=== PATIENT | male | born 1990 | race Caucasian/White ===

== ENCOUNTER 2019-01-08 01:15 | Inpatient (IN) | payer OTHER ==
[~2019-01-08] VITALS: Ht 180.3 cm; Wt 82.3 kg
[~2019-01-08 01:15] MED LIST: ALBU3IS INH; ALBU90OI INH; ALBU90OI6 INH; ALBU90OI61 INH; ALPR1; ALPR1 PO; AZIT250 PO; BENZ100A PO; DELTASONE20 MG PO; DICY20 PO; DIPH50 PO; DULERA 100 MCG/13 GM INH; DULERA 200 MCG/13 GM INH; FLUSAL2505 INH; FLUSAL5005 IH; FLUT110OIA IH; Flomax0.4 MG PO; HYDACE5 PO; HYDMOR4 PO; IBUP800 PO; KETO10 PO; LORA10 PO; MAGSULP TOP; MELO7.5 PO; MONT10T PO; NAPR500 PO; ONDA4; OSEL75CA PO; PANT40 PO; PRED10 PO; PRED20 PO; PRED5 PO; PROC10 PO; PROM25 PO; Percocet 5-3251 EACH PO; Prednisone20 MG PO; Pulmicort1 MG/2 ML INH; RXALBOI INH; THEO400ER PO; Zithromax250 MG PO
[2019-01-08 03:15] LABS: BASOPHILS ABSOLUTE AUTO 0.14 K/mm3 (0.00-0.23); BASOPHILS PERCENT AUTO 1 % (0-2); EOSINOPHILS ABSOLUTE AUTO 1.64 K/mm3 (0.00-0.68); EOSINOPHILS PERCENT AUTO 11 % (0-6); Hematocrit 48.8 % (37.0-53.0); Hemoglobin 15.9 g/dL (13.5-17.5); IMMATURE GRAN ABSOLUTE AUTO 0.07 K/mm3 (0.00-0.10); IMMATURE GRAN PERCENT AUTO 1 % (0-1); LYMPHOCYTES ABSOLUTE AUTO 2.12 K/mm3 (0.84-5.20); LYMPHOCYTES PERCENT AUTO 15 % (21-46); MONOCYTES ABSOLUTE AUTO 0.93 K/mm3 (0.16-1.47); MONOCYTES PERCENT AUTO 6 % (4-13); Mean Corpuscular HGB 29.8 pg (26.0-34.0); Mean Corpuscular HGB Conc 32.6 g/dL (31.5-36.5); Mean Corpuscular Volume 92 fL (80-100); Mean Platelet Volume 12.2 fL (9.1-12.4); NEUTROPHILS ABSOLUTE AUTO 9.53 K/mm3 (1.96-9.15); NEUTROPHILS PERCENT AUTO 66 % (41-73); Platelet Count 361 K/mm3 (150-400); RDW Standard Deviation 43.6 fL (35.1-46.3); Red Blood Cell Count 5.33 M/mm3 (4.30-5.90); White Blood Cell Count 14.43 K/mm3 (4.00-11.30)
[2019-01-08 03:27] LABS: Alanine Aminotransfer (ALT/SGP 47 U/L (12-78); Albumin, Blood 4.5 g/dL (3.4-5.0); Albumin/Globulin Ratio 1.5 (0.8-1.8); Alk Phos 91 U/L (50-136); Anion Gap 8 mmol/L (6-16); Aspartate Aminotrans (AST/SGOT 24 U/L (12-37); Bilirubin, Total 0.4 mg/dL (0.1-1.0); Blood Urea Nitrogen 9 mg/dL (8-24); Bun/Creatinine Ratio 10.1 (12.0-20.0); CO2, Blood 26 mmol/L (21-32); Chloride, Blood 110 mmol/L (98-108); Creatinine, Blood 0.89 mg/dL (0.60-1.20); Globulin, Blood 3.1 g/dL (2.2-4.0); Glomerular Filtration Rate >60 (60-); Glucose, Blood 108 mg/dL (70-99); Sodium, Blood 144 mmol/L (136-145); Total Protein, Blood 7.6 g/dL (6.4-8.2)
--- NOTE | 2019-01-08 06:59 | NUR ---
STENOTYPIST SUMMARY NEW ADMIT FROM THE ED. PT AAOX4 AND INDEPENDENT. HERE FOR AN ASTHMA EXACERBATION. SATTING IN MID 90'S ON RA. EXP WHEEZING NOTED THROUGHOUT. PT REPORTS SOME LOWER CHEST DISCOMFORT. PT STATES THIS PAIN OCCURS WHEN HE HAS BREATHING ISSUES AND HAPPENS FROM TIME TO TIME SINCE HE HAD A PNEUMOTHORAX A FEW YEARS AGO. GAVE PT FENTANYL 25 MCG WITH GOOD PAIN RELIEF. PT RESTING AT THIS TIME. VSS, WILL CONTINUE TO MONITOR.
[2019-01-08 08:00] LABS: Adenovirus Not Detected (NOT DETECT); Bordetella pertussis Not Detected (NOT DETECT); Chlamydophila pneumoniae Not Detected (NOT DETECT); Coronavirus 229E Not Detected (NOT DETECT); Coronavirus HKU1 Not Detected (NOT DETECT); Coronavirus NL63 Not Detected (NOT DETECT); Coronavirus OC43 Not Detected (NOT DETECT); Human Metapneumovirus Not Detected (NOT DETECT); Human Rhinovirus/Enterovirus Not Detected (NOT DETECT); Influenza A Not Detected (NOT DETECT); Influenza A/2009-H1 Not Detected (NOT DETECT); Influenza A/H1 Not Detected (NOT DETECT); Influenza A/H3 Not Detected (NOT DETECT); Influenza B Not Detected (NOT DETECT); Mycoplasma pneumoniae Not Detected (NOT DETECT); Parainfluenza Virus 1 Not Detected (NOT DETECT); Parainfluenza Virus 2 Not Detected (NOT DETECT); Parainfluenza Virus 3 Not Detected (NOT DETECT); Parainfluenza Virus 4 Not Detected (NOT DETECT); Respiratory Syncytial Virus Not Detected (NOT DETECT)
[2019-01-08 15:37] LABS: Hematocrit 43.8 % (37.0-53.0); Hemoglobin 14.6 g/dL (13.5-17.5); Mean Corpuscular HGB 30.2 pg (26.0-34.0); Mean Corpuscular HGB Conc 33.3 g/dL (31.5-36.5); Mean Corpuscular Volume 91 fL (80-100); Platelet Count 327 K/mm3 (150-400); Red Blood Cell Count 4.84 M/mm3 (4.30-5.90); White Blood Cell Count 19.59 K/mm3 (4.00-11.30)
[2019-01-08 16:07] LABS: Alanine Aminotransfer (ALT/SGP 44 U/L (12-78); Albumin, Blood 4.2 g/dL (3.4-5.0); Albumin/Globulin Ratio 1.2 (0.8-1.8); Alk Phos 83 U/L (50-136); Anion Gap 10 mmol/L (6-16); Aspartate Aminotrans (AST/SGOT 25 U/L (12-37); Bilirubin, Total 0.5 mg/dL (0.1-1.0); Blood Urea Nitrogen 8 mg/dL (8-24); Bun/Creatinine Ratio 11.7 (12.0-20.0); CO2, Blood 23 mmol/L (21-32); Calcium, Blood 9.4 mg/dL (8.5-10.1); Chloride, Blood 105 mmol/L (98-108); Creatinine, Blood 0.69 mg/dL (0.60-1.20); Globulin, Blood 3.4 g/dL (2.2-4.0); Glomerular Filtration Rate >60 (60-); Glucose, Blood 136 mg/dL (70-99); Potassium, Blood 4.4 mmol/L (3.5-5.5); Sodium, Blood 138 mmol/L (136-145); Total Protein, Blood 7.6 g/dL (6.4-8.2)
--- NOTE | 2019-01-08 17:11 | NUR ---
PATIENT A/OX4, UP INDEPENDENTLY IN ROOM. CHANGED TO MEDICAL STATUS WITHOUT TELE. 18G IV TO L AC WNL AND SL. PATIENT TOLERATING DIET. FENTANYL GIVEN Q4 HOURS THIS SHIFT TO CONTROL CHEST/LUNG PAIN. ROBUTUSSIN GIVEN PRN TO CONTROL COUGH. LUNGS TIGHT/WHEEZY, ON RA. SCHEDULED AND PRN RT TX GIVEN. PATIENT CALM AND COOPERATIVE WITH CARE, CALLS APPROPRIATELY FOR ASSISTANCE.
--- NOTE | 2019-01-08 18:36 | NUR ---
REPORT GIVEN TO GERARD SANTOS. WILL TRANSFER TO ROOM 336 WHEN ROOM IS CLEAN.
--- NOTE | 2019-01-08 20:08 | NUR ---
LYING PRONE IN BED WITH EYES OPEN WHILE VISITING WITH FRIENDS AT BEDSIDE, VSS, NAD NOTED. DENIES PAIN OR DISCOMFORT AT THIS TIME. TRANSPORTED TO ROOM 336 FROM [facility] VIA WHEELCHAIR. ALL BELONGINGS GATHERED AND CARRIED BY PT FRIENDS AT BEDSIDE. REPORT PREVIOUSLY GIVEN ON DAY SHIFT.
--- NOTE | 2019-01-09 04:53 | NUR ---
SHIFT SUMMARY RECEIVED PT AFTER START OF [employer] FROM PCU. PT IS A&O, INDEPENDANT IN . ADMITTED FOR ACUTE ASTHMA EXAC, ON RA. LUNGS T/O WITH EXP WHEEZES THRU OUT. PT REPORTED OCCASSIONAL COUGH, WITH PAIN IN CHEST FROM LOWER LUNGS WHEN COUGHING. REQUESTED FENTANYL AT HS. VISITORS IN FOR A WHILE AFTER TX. CALL LT IN REACH. ABLE TO MAKE NEEDS KNOWN.
--- NOTE | 2019-01-09 18:34 | NUR ---
SHIFT SUMMARY PT INDEPENDENT IN ROOM ON ROOM AIR. PT CONTINUES TO HAVE EXPIRATORY WHEEZES T/O. PT HAD SHOWER. NO ACUTE CHANGES THIS SHIFT. PLANS FOR CHEST XRAY THIS EVENING. WILL CONTINUE TO MONITOR AND REPORT TO ONCOMING RN. CALL LIGHT IN REACH.
[2019-01-10 05:09] LABS: BASOPHILS ABSOLUTE AUTO 0.05 K/mm3 (0.00-0.23); BASOPHILS PERCENT AUTO 0 % (0-2); EOSINOPHILS PERCENT AUTO 0 % (0-6); Hematocrit 41.5 % (37.0-53.0); Hemoglobin 13.6 g/dL (13.5-17.5); IMMATURE GRAN ABSOLUTE AUTO 0.33 K/mm3 (0.00-0.10); IMMATURE GRAN PERCENT AUTO 1 % (0-1); LYMPHOCYTES ABSOLUTE AUTO 0.73 K/mm3 (0.84-5.20); LYMPHOCYTES PERCENT AUTO 2 % (21-46); MONOCYTES ABSOLUTE AUTO 1.31 K/mm3 (0.16-1.47); MONOCYTES PERCENT AUTO 4 % (4-13); Mean Corpuscular HGB 30.1 pg (26.0-34.0); Mean Corpuscular HGB Conc 32.8 g/dL (31.5-36.5); Mean Corpuscular Volume 92 fL (80-100); Mean Platelet Volume 11.8 fL (9.1-12.4); NEUTROPHILS ABSOLUTE AUTO 30.74 K/mm3 (1.96-9.15); NEUTROPHILS PERCENT AUTO 93 % (41-73); Platelet Count 315 K/mm3 (150-400); RDW Coefficient Variation 13.1 % (11.7-14.2); Red Blood Cell Count 4.52 M/mm3 (4.30-5.90); White Blood Cell Count 33.16 K/mm3 (4.00-11.30)
[2019-01-10 05:41] LABS: Albumin, Blood 3.7 g/dL (3.4-5.0); Anion Gap 7 mmol/L (6-16); Blood Urea Nitrogen 20 mg/dL (8-24); Bun/Creatinine Ratio 22.2 (12.0-20.0); CO2, Blood 27 mmol/L (21-32); Calcium, Blood 8.7 mg/dL (8.5-10.1); Chloride, Blood 105 mmol/L (98-108); Glomerular Filtration Rate >60 (60-); Glucose, Blood 147 mg/dL (70-99); Potassium, Blood 4.4 mmol/L (3.5-5.5); Sodium, Blood 139 mmol/L (136-145)
--- NOTE | 2019-01-10 06:27 | NUR ---
SHIFT SUMMARY NO ACUTE CHANGES TO PRESENT THIS SHIFT. PT EATING FOOD BROUGHT IN BY FRIENDS AT START OF SHIFT. PT REQUESTING TORADOL FOR CARPIO. RADIOLOGY HERE TO TAKE PT FOR CXR WHEN FRIENDS HERE. PT THEN WENT DOWN TO COFFEE CART AND SNACK MACHINES AFTER RETURNING FROM CXR. PT STAGGERED BACK TO RM. LATER WHEN RT WHEN IN TO ASK IF HE WANTED HIS TX PT WAS VERY CONFUSED AND DISORIENTED, APPEARING TO BE DRUG RELATED. RT REPORTED PT DOES TAKE ALOT OF MARIJUANA. LUNGS T/O VERY MUCH IMPROVED FROM YESTERDAY. NO NOTEABLE WHEEZES AT TIME OF ASSESSMENT. PT APPEARED TO BE BREATHING EASIER AND REPORTED IT SO. INDEPENDANT IN RM. CALL LT IN REACH.
--- NOTE | 2019-01-10 18:35 | NUR ---
SHIFT SUMMARY PT'S LUNG SOUNDS ARE LESS WHEEZY THIS SHIFT THAN YESTERDAY. MEDICATED FOR PAIN IN LEFT SIDE/RIBS SEVERAL TIMES THIS SHIFT. PT ON ROOM AIR. NO ACUTE CHANGES THIS SHIFT. POSSIBLE DISCHARGE TOMORROW. CALL LIGHT IN REACH. WILL CONTINUE TO MONITOR AND REPORT TO ONCOMING RN.
[2019-01-11 05:31] LABS: BASOPHILS ABSOLUTE AUTO 0.04 K/mm3 (0.00-0.23); BASOPHILS PERCENT AUTO 0 % (0-2); EOSINOPHILS ABSOLUTE AUTO 0.01 K/mm3 (0.00-0.68); EOSINOPHILS PERCENT AUTO 0 % (0-6); Hematocrit 42.1 % (37.0-53.0); Hemoglobin 13.6 g/dL (13.5-17.5); IMMATURE GRAN PERCENT AUTO 1 % (0-1); LYMPHOCYTES ABSOLUTE AUTO 0.83 K/mm3 (0.84-5.20); LYMPHOCYTES PERCENT AUTO 3 % (21-46); MONOCYTES ABSOLUTE AUTO 1.01 K/mm3 (0.16-1.47); MONOCYTES PERCENT AUTO 4 % (4-13); Mean Corpuscular HGB 29.5 pg (26.0-34.0); Mean Corpuscular HGB Conc 32.3 g/dL (31.5-36.5); Mean Corpuscular Volume 91 fL (80-100); NEUTROPHILS ABSOLUTE AUTO 22.27 K/mm3 (1.96-9.15); NEUTROPHILS PERCENT AUTO 91 % (41-73); Platelet Count 310 K/mm3 (150-400); RDW Coefficient Variation 13.1 % (11.7-14.2); Red Blood Cell Count 4.61 M/mm3 (4.30-5.90); White Blood Cell Count 24.46 K/mm3 (4.00-11.30)
[2019-01-11] MEDS ORDERED: ALBU2.5V5 INH (15:45)
[2019-01-11] MEDS ORDERED: FLUT1DIS5 INH (15:46)
[2019-01-11] MEDS ORDERED: PRED10 PO (15:49)
--- NOTE | 2019-01-11 16:09 | NUR ---
PATIENT DISCHARGE: PATIENT DISCHARGED TO HOME THIS SHIFT. MEDICATION RECONCILIATION COMPLETED; MED LIST FAXED TO [facility]. DISCHARGE EDUCATION COMPLETED WITH PATIENT. PATIENT REFUSED WHEELCHAIR TO EXIT; PATIENT DEPARTED MEDICAL FLOOR AT 1609. PATIENT DEPARTED [facility] VIA PRIVATE AUTO.
== END 2019-01-11 16:11 | disposition home or self-care (01) | DRG 202 ==
LOC: ER 01:15 → PCU 03:10 → MEDS 04:24 → ER 04:24 → PCU 04:41 → MEDS 20:07
PROVIDERS: Family Medicine; ADMIT Internal Medicine
DX: J45.901 Unspecified asthma with (acute) exacerbation (principal); J98.11 Atelectasis; G43.909 Migraine, unspecified, not intractable, without status migrainosus; Z87.09 Personal history of other diseases of the respiratory system; I27.20 Pulmonary hypertension, unspecified
CPT/HCPCS: 36415; 71045; 71046; 80053; 80069; 84145; 85025; 85027; 87486; 87581; 87633; 87798; 94640; 94644; 94760; 96365; 96375; 99285-25; J1650; J1885; J2930; J3010; J3475; Q0163

== ENCOUNTER 2021-08-19 21:10 | Emergency (ER) | payer OTHER ==
[~2021-08-19] VITALS: Ht 177.8 cm; Wt 76.7 kg
[~2021-08-19 21:10] MED LIST changes: +ALBU2.5V5 INH; +FLUT1DIS5 INH
[2021-08-19] MEDS ORDERED: KETOROLAC TROMET5 ML RIGHTEYE (23:44)
[2021-08-19] MEDS ORDERED: ERYT1OIN RIGHTEYE (23:44)
== END 2021-08-20 | disposition home or self-care (01) ==
LOC: ER 21:10
DX: S05.01XA Injury of conjunctiva and corneal abrasion without foreign body, right eye, initial encounter (principal); J44.9 Chronic obstructive pulmonary disease, unspecified; M19.90 Unspecified osteoarthritis, unspecified site; Z79.82 Long term (current) use of aspirin; Z79.899 Other long term (current) drug therapy; X58.XXXA Exposure to other specified factors, initial encounter
CPT/HCPCS: 99282; A9270

== ENCOUNTER 2022-07-30 22:46 | Emergency (ER) | payer OTHER ==
[~2022-07-30] VITALS: Ht 177.8 cm; Wt 81.7 kg
[~2022-07-30 22:46] MED LIST changes: +ERYT1OIN RIGHTEYE; +KETOROLAC TROMET5 ML RIGHTEYE
[2022-07-31] MEDS ORDERED: Percocet 5-3251 EACH PO (01:44)
[2022-07-31] MEDS ORDERED: IBUP800 PO (01:44)
== END 2022-07-31 02:10 | disposition home or self-care (01) ==
LOC: ER 22:46
DX: S62.316A Displaced fracture of base of fifth metacarpal bone, right hand, initial encounter for closed fracture (principal); S93.502A Unspecified sprain of left great toe, initial encounter; I10 Essential (primary) hypertension; J44.9 Chronic obstructive pulmonary disease, unspecified; Z79.899 Other long term (current) drug therapy; W01.0XXA Fall on same level from slipping, tripping and stumbling without subsequent striking against object, initial encounter
CPT/HCPCS: 73130; 73620; A9270

== ENCOUNTER 2022-11-06 20:13 | Emergency (ER) | payer OTHER ==
[~2022-11-06] VITALS: Ht 177.8 cm; Wt 83.9 kg
[2022-11-06 20:49] LABS: BASOPHILS ABSOLUTE AUTO 0.13 K/mm3 (0.00-0.23); BASOPHILS PERCENT AUTO 1 % (0-2); EOSINOPHILS ABSOLUTE AUTO 1.25 K/mm3 (0.00-0.68); EOSINOPHILS PERCENT AUTO 12 % (0-6); Hematocrit 49.9 % (37.0-53.0); Hemoglobin 17.2 g/dL (13.5-17.5); IMMATURE GRAN ABSOLUTE AUTO 0.07 K/mm3 (0.00-0.10); IMMATURE GRAN PERCENT AUTO 1 % (0-1); LYMPHOCYTES ABSOLUTE AUTO 2.62 K/mm3 (0.84-5.20); LYMPHOCYTES PERCENT AUTO 25 % (21-46); MONOCYTES PERCENT AUTO 8 % (4-13); Mean Corpuscular HGB 29.5 pg (26.0-34.0); Mean Corpuscular HGB Conc 34.5 g/dL (31.5-36.5); Mean Corpuscular Volume 85 fL (80-100); Mean Platelet Volume 10.6 fL (9.1-12.4); NEUTROPHILS ABSOLUTE AUTO 5.48 K/mm3 (1.96-9.15); NEUTROPHILS PERCENT AUTO 53 % (41-73); Platelet Count 347 K/mm3 (150-400); RDW Coefficient Variation 12.9 % (11.7-14.2); RDW Standard Deviation 39.7 fL (35.1-46.3); Red Blood Cell Count 5.84 M/mm3 (4.30-5.90); White Blood Cell Count 10.35 K/mm3 (4.00-11.30)
[2022-11-06 21:38] LABS: Albumin, Blood 4.5 g/dL (3.4-5.0); Albumin/Globulin Ratio 1.2 (0.8-1.8); Bilirubin, Total 0.6 mg/dL (0.1-1.0); Bun/Creatinine Ratio 12.6 (12.0-20.0); Calcium, Blood 10.1 mg/dL (8.5-10.1); Creatinine, Blood 0.87 mg/dL (0.60-1.20); Globulin, Blood 3.6 g/dL (2.2-4.0); Potassium, Blood 3.6 mmol/L (3.5-5.5); Total Protein, Blood 8.1 g/dL (6.4-8.2)
== END 2022-11-07 01:02 | disposition home or self-care (01) ==
LOC: ER 20:13
PROVIDERS: Student in an Organized Health Care Education/Training Program
DX: R07.9 Chest pain, unspecified (principal); M79.602 Pain in left arm; M79.601 Pain in right arm; Z79.899 Other long term (current) drug therapy; Z79.52 Long term (current) use of systemic steroids; J44.9 Chronic obstructive pulmonary disease, unspecified; M19.90 Unspecified osteoarthritis, unspecified site
CPT/HCPCS: 36415; 71046; 80053; 83690; 84484; 85025; 93005; 93010; 99285-25

== ENCOUNTER 2024-07-24 15:23 | Emergency (ER) | payer BC ==
[~2024-07-24] VITALS: Ht 177.8 cm; Wt 90.7 kg
[2024-07-24 15:56] VITALS: BP 139/94
[2024-07-24] MEDS ORDERED: Ketorolac Tromethamine 15mg Vial IV ONE (18:30)
[2024-07-24] MEDS ORDERED: OxyCODONE HCL 5 MG TAB PO ONE (18:30)
[2024-07-24] MEDS ORDERED: Trimethoprim/Sulfamethoxazole DS Tab PO ONE (19:55)
[2024-07-24] MEDS ORDERED: Cephalexin Monohydrate 500 MG Cap PO ONE (19:55)
[2024-07-24] MEDS ORDERED: CEPH500 PO (19:59)
[2024-07-24] MEDS ORDERED: BACTRIM DS TAB1 EAC1 PO (19:59)
== END 2024-07-24 20:09 | disposition home or self-care (01) ==
LOC: ER 15:23
DX: K61.0 Anal abscess (principal); J45.909 Unspecified asthma, uncomplicated; Z79.51 Long term (current) use of inhaled steroids; Z79.899 Other long term (current) drug therapy
CPT/HCPCS: 46050; 99282-25; A9270; J1885

== ENCOUNTER 2024-09-09 14:05 | Emergency (ER) | payer BC ==
[~2024-09-09] VITALS: Ht 177.8 cm; Wt 90.7 kg
[~2024-09-09 14:05] MED LIST changes: +BACTRIM DS TAB1 EAC1 PO; +CEPH500 PO
[2024-09-09 15:48] LABS: CORONAVIRUS COVID-19 AG Negative (NEGATIVE); INFLUENZA A AG Negative (NEGATIVE); INFLUENZA B AG Negative (NEGATIVE)
[2024-09-09] MEDS ORDERED: MethylPREDNISolone Sod Succ 125 MG Vial IV ONE (16:25)
[2024-09-09] MEDS ORDERED: Ipratropium Bromide INH 0.02% 0.5 mg/2.5ML Vial INH SCH (16:25)
[2024-09-09] MEDS ORDERED: Magnesium Sulf 2 GM/Water 50ML 50 ML IV ONE (16:25)
[2024-09-09] MEDS ORDERED: Albuterol 2.5 MG/3 ML VIAL INH SCH (16:25)
[2024-09-09 16:45] VITALS: BP 140/100
[2024-09-09 16:50] LABS: BASOPHILS ABSOLUTE AUTO 0.08 K/mm3 (0.00-0.23); BASOPHILS PERCENT AUTO 1 % (0-2); EOSINOPHILS ABSOLUTE AUTO 0.34 K/mm3 (0.00-0.68); EOSINOPHILS PERCENT AUTO 3 % (0-6); Hematocrit 43.2 % (37.0-53.0); Hemoglobin 14.9 g/dL (13.5-17.5); IMMATURE GRAN ABSOLUTE AUTO 0.07 K/mm3 (0.00-0.10); IMMATURE GRAN PERCENT AUTO 1 % (0-1); LYMPHOCYTES ABSOLUTE AUTO 1.78 K/mm3 (0.84-5.20); LYMPHOCYTES PERCENT AUTO 16 % (21-46); MONOCYTES ABSOLUTE AUTO 1.06 K/mm3 (0.16-1.47); MONOCYTES PERCENT AUTO 10 % (4-13); Mean Corpuscular HGB 30.2 pg (26.0-34.0); Mean Corpuscular HGB Conc 34.5 g/dL (31.5-36.5); Mean Corpuscular Volume 88 fL (80-100); Mean Platelet Volume 11.2 fL (9.1-12.4); NEUTROPHILS ABSOLUTE AUTO 7.79 K/mm3 (1.96-9.15); NEUTROPHILS PERCENT AUTO 70 % (41-73); Platelet Count 363 K/mm3 (150-400); RDW Coefficient Variation 13.2 % (11.7-14.2); RDW Standard Deviation 42.2 fL (35.1-46.3); Red Blood Cell Count 4.93 M/mm3 (4.30-5.90); White Blood Cell Count 11.12 K/mm3 (4.00-11.30)
[2024-09-09 17:05] LABS: Albumin, Blood 3.8 g/dL (3.4-5.0); Bilirubin, Total 0.9 mg/dL (0.1-1.0); Bun/Creatinine Ratio 12.2 (12.0-20.0); Calcium, Blood 11.7 mg/dL (8.5-10.1); Creatinine, Blood 1.23 mg/dL (0.60-1.20); Globulin, Blood 3.9 g/dL (2.2-4.0); Potassium, Blood 3.7 mmol/L (3.5-5.5); Total Protein, Blood 7.7 g/dL (6.4-8.2)
[2024-09-09] MEDS ORDERED: Ibuprofen 600 MG Tab PO ONE (17:15)
[2024-09-09 17:47] LABS: Base Excess Venous 4.7 mmol/L; Bicarbonate Venous 28.1 mmol/L (24.0-30.0); PCO2 Venous 42.8 mmHg (38-42); pH Blood Venous 7.44 (7.34-7.37)
[2024-09-09] MEDS ORDERED: PRED20 PO (18:40)
== END 2024-09-09 18:45 | disposition home or self-care (01) ==
LOC: ER 14:05
PROVIDERS: Physician Assistant; Student in an Organized Health Care Education/Training Program
DX: J45.901 Unspecified asthma with (acute) exacerbation (principal); J44.9 Chronic obstructive pulmonary disease, unspecified; Z79.899 Other long term (current) drug therapy; Z79.52 Long term (current) use of systemic steroids; Z79.51 Long term (current) use of inhaled steroids
CPT/HCPCS: 71046; 80053; 82803; 84484; 85025; 85379; 87428-QW; 93005; 93010; 94644; 94664; 96365; 96366; 96375; 99284-25; A9270; J2919; J3475

== ENCOUNTER 2024-09-29 13:51 | Observation (INO) | payer BC ==
[~2024-09-29] VITALS: Ht 177.8 cm; Wt 93.2 kg
[~2024-09-29 13:51] MED LIST changes: +AMOCLA875 PO; +LOSA50 PO; +Norco 5-325 Ta1 EACH PO
[2024-09-29 14:31] LABS: BASOPHILS ABSOLUTE AUTO 0.03 K/mm3 (0.00-0.23); BASOPHILS PERCENT AUTO 0 % (0-2); EOSINOPHILS ABSOLUTE AUTO 0.02 K/mm3 (0.00-0.68); EOSINOPHILS PERCENT AUTO 0 % (0-6); Hematocrit 41.2 % (37.0-53.0); Hemoglobin 14.3 g/dL (13.5-17.5); IMMATURE GRAN ABSOLUTE AUTO 0.08 K/mm3 (0.00-0.10); IMMATURE GRAN PERCENT AUTO 1 % (0-1); LYMPHOCYTES ABSOLUTE AUTO 1.96 K/mm3 (0.84-5.20); LYMPHOCYTES PERCENT AUTO 11 % (21-46); MONOCYTES ABSOLUTE AUTO 0.98 K/mm3 (0.16-1.47); MONOCYTES PERCENT AUTO 6 % (4-13); Mean Corpuscular HGB 30.4 pg (26.0-34.0); Mean Corpuscular HGB Conc 34.7 g/dL (31.5-36.5); Mean Corpuscular Volume 88 fL (80-100); Mean Platelet Volume 10.7 fL (9.1-12.4); NEUTROPHILS ABSOLUTE AUTO 14.36 K/mm3 (1.96-9.15); NEUTROPHILS PERCENT AUTO 82 % (41-73); Platelet Count 374 K/mm3 (150-400); RDW Coefficient Variation 12.7 % (11.7-14.2); RDW Standard Deviation 41.1 fL (35.1-46.3); Red Blood Cell Count 4.71 M/mm3 (4.30-5.90); White Blood Cell Count 17.43 K/mm3 (4.00-11.30)
[2024-09-29] MEDS ORDERED: Acetaminophen 325 MG TABLET PO ONE (14:40)
[2024-09-29] MEDS ORDERED: Ondansetron HCl 2 MG / ML 2ML Vial IV ONE (14:40)
[2024-09-29] MEDS ORDERED: NS 1,000 ML IV SCH (14:40)
[2024-09-29] MEDS ORDERED: HYDROmorphone HCl/Pf 1MG SYR IV ONE (14:40)
[2024-09-29 14:53] LABS: Albumin, Blood 4.1 g/dL (3.4-5.0); Bilirubin, Total 0.5 mg/dL (0.1-1.0); Bun/Creatinine Ratio 13.9 (12.0-20.0); Creatinine, Blood 0.93 mg/dL (0.60-1.20); Potassium, Blood 3.6 mmol/L (3.5-5.5); Total Protein, Blood 8.1 g/dL (6.4-8.2)
[2024-09-29] MEDS ORDERED: Ampicillin Sod/Sulbactam Sod 3 GM in NS 100 ML IV ONE (15:55)
[2024-09-29] MEDS ORDERED: Ibuprofen 400 MG Tab PO PRN (16:40)
[2024-09-29] MEDS ORDERED: Albuterol 2.5 MG/3 ML VIAL INH PRN (16:40)
[2024-09-29] MEDS ORDERED: HYDROcodone 5-APAP 325 TAB PO PRN (16:45)
[2024-09-29] MEDS ORDERED: DiphenhydrAMINE HCl 50 MG Cap PO PRN (16:45)
[2024-09-29] MEDS ORDERED: FLU VACC TS2024-25(6MOS UP)/PF 45 MCG/0.5 ML SYRINGE IM SCH (16:45)
[2024-09-29] MEDS ORDERED: FentaNYL Citrate 50 MCG/ML 2 ML Injection IV PRN (16:45)
[2024-09-29] MEDS ORDERED: Mometasone/Formoterol MDI 200/5 mcg 13 GM INH SCH (16:50)
[2024-09-29] MEDS ORDERED: Polyethylene Glycol 3350 17 gm PO PRN (17:10)
[2024-09-29] MEDS ORDERED: Acetaminophen 325 MG TABLET PO PRN (17:10)
[2024-09-29] MEDS ORDERED: Ondansetron HCl 2 MG / ML 2ML Vial IV PRN (17:10)
[2024-09-29] MEDS ORDERED: Ampicillin Sod/Sulbactam Sod 3 GM in NS 100 ML IV SCH (18:00)
--- NOTE | 2024-09-29 18:30 | NUR ---
PT ADMITTED TO ROOM 313 FROM ED VIA WHEELCHAIR. AT BEDSIDE.
[2024-09-29 18:53] VITALS: BP 146/85
[2024-09-29 19:09] VITALS: BP 136/101
[2024-09-29] MEDS ORDERED: NS 250 ML IV PRN (19:35)
[2024-09-29] MEDS ORDERED: Lactobacil 2-S.Thermo-Bifido 1 1 Cap PO SCH (21:00)
[2024-09-29] MEDS ORDERED: Montelukast Sodium 10 MG Tab PO SCH (21:00)
[2024-09-30] MEDS ORDERED: Misc. Oral Solution PO PRN (00:45)
--- NOTE | 2024-09-30 00:46 | NUR ---
HOSPITALIST CONTACT PT HAS HOME MED ON HIS PERSONS--GUAIFENESIN-CODEINE SYRUP, DOSE 10ML Q4 HOURS. PRIMARY NURSE EDUCATED PT ON NEED TO HAVE HOME MEDS APPROVED BY AND SENT TO PHARMACY. CALL TO HOSPITALIST. APPROVED ORDER FOR HOME MED ORDERED EVERY 4 HOURS PRN.
[2024-09-30 02:02] VITALS: BP 136/77
--- NOTE | 2024-09-30 04:25 | NUR ---
SHIFT SUMMARY ADMITTED FOR PERIRECTAL ABSCESS. RAFIQ DRAIN IN PLACE. FULL CODE. SURGICAL CONSULT HAS BEEN NOTIFIED. IV ANTIB RX ARE SCHEDULED. IV AND PO PAIN RX GIVEN THIS SHIFT. HE DID PRESENT HIS HOME COUGH MEDICATION GUAIFENESSEN W/CODEINE WELL TO ME. HOSPITALIST NOTIFIED, THIS HOME MEDICATION IS NOW IN PHARMACY AND WILL HAVE TO BE RETRIEVED FOR EACH DOSE. HE HAS A TICKET TO RETRIEVE IT BACK WHEN HE DC'S. ON RA. A&O X4. REGULAR DIET.
[2024-09-30 07:02] LABS: BASOPHILS ABSOLUTE AUTO 0.07 K/mm3 (0.00-0.23); BASOPHILS PERCENT AUTO 1 % (0-2); EOSINOPHILS ABSOLUTE AUTO 0.33 K/mm3 (0.00-0.68); EOSINOPHILS PERCENT AUTO 3 % (0-6); Hematocrit 35.8 % (37.0-53.0); Hemoglobin 12.2 g/dL (13.5-17.5); IMMATURE GRAN ABSOLUTE AUTO 0.06 K/mm3 (0.00-0.10); IMMATURE GRAN PERCENT AUTO 1 % (0-1); LYMPHOCYTES PERCENT AUTO 24 % (21-46); MONOCYTES PERCENT AUTO 9 % (4-13); Mean Corpuscular HGB 30.7 pg (26.0-34.0); Mean Corpuscular HGB Conc 34.1 g/dL (31.5-36.5); Mean Corpuscular Volume 90 fL (80-100); Mean Platelet Volume 11.3 fL (9.1-12.4); NEUTROPHILS ABSOLUTE AUTO 6.31 K/mm3 (1.96-9.15); NEUTROPHILS PERCENT AUTO 63 % (41-73); Platelet Count 323 K/mm3 (150-400); RDW Coefficient Variation 13.1 % (11.7-14.2); RDW Standard Deviation 43.2 fL (35.1-46.3); Red Blood Cell Count 3.97 M/mm3 (4.30-5.90); White Blood Cell Count 10.07 K/mm3 (4.00-11.30)
[2024-09-30 07:29] LABS: Bun/Creatinine Ratio 14.3 (12.0-20.0); Calcium, Blood 8.7 mg/dL (8.5-10.1); Creatinine, Blood 0.98 mg/dL (0.60-1.20); Potassium, Blood 3.8 mmol/L (3.5-5.5)
[2024-09-30 08:03] VITALS: BP 136/95
[2024-09-30] MEDS ORDERED: Losartan Potassium 50 MG Tab PO SCH (09:00)
[2024-09-30] MEDS ORDERED: Enoxaparin 40 MG/0.4 ML SYR SC SCH (09:00)
[2024-09-30] MEDS ORDERED: ALBU90OI INH (11:52)
[2024-09-30] MEDS ORDERED: METPHE20 PO (11:54)
[2024-09-30] MEDS ORDERED: TESTOSTERONE CYP IM (11:54)
[2024-09-30] MEDS ORDERED: CODEINE-GUAIFE120 M1 PO (11:55)
[2024-09-30] MEDS ORDERED: IBUP400 PO (16:33)
[2024-09-30] MEDS ORDERED: MIRALAX17 GM PO (16:33)
[2024-09-30] MEDS ORDERED: VISBIOME 112.51 EACH PO (16:34)
--- NOTE | 2024-09-30 16:55 | NUR ---
PT DISCHARGED HOME WITH . DISCHARGE INSTRUCTIONS PROVIDED AND EDUCATED ON PRIOR TO DISCHARGE.
== END 2024-09-30 16:54 | disposition home or self-care (01) ==
LOC: ER 13:51 → MEDS 13:55 → ER 16:39 → MEDS 18:24 → ER 18:24 → MEDS 18:24
PROVIDERS: Emergency Medicine; ADMIT Internal Medicine
PROC: 0D9Q0ZZ Drainage of Anus, Open Approach (ICD-10-PCS; principal; 2024-09-29)
DX: A41.9 Sepsis, unspecified organism (principal); K61.0 Anal abscess; I10 Essential (primary) hypertension; J44.9 Chronic obstructive pulmonary disease, unspecified; I27.20 Pulmonary hypertension, unspecified; D89.89 Other specified disorders involving the immune mechanism, not elsewhere classified; B95.8 Unspecified staphylococcus as the cause of diseases classified elsewhere; Z79.899 Other long term (current) drug therapy
CPT/HCPCS: 36415; 72193; 80048; 80053; 83605; 85025; 87040; 87070; 87075; 87076; 87077; 87185; 87186; 87205; 94640; 94664; 94760; 96361; 96365; 96365-59; 96366; 96372; 96375; 96376; 99284-25; 99285-25; A9270; G0378; J0295; J0696; J1100; J1171; J1650; J1885; J2270; J2405; J2704; J3010; J3370; J7030; J7040; J7120; Q9967

== ENCOUNTER 2024-10-10 16:22 | Emergency (ER) | payer BC ==
[~2024-10-10] VITALS: Ht 177.8 cm; Wt 89.8 kg
[~2024-10-10 16:22] MED LIST changes: +CODEINE-GUAIFE120 M1 PO; +IBUP400 PO; +METPHE20 PO; +MIRALAX17 GM PO; +TESTOSTERONE CYP IM; +VISBIOME 112.51 EACH PO
[2024-10-10 17:19] LABS: BASOPHILS ABSOLUTE AUTO 0.09 K/mm3 (0.00-0.23); BASOPHILS PERCENT AUTO 1 % (0-2); EOSINOPHILS ABSOLUTE AUTO 0.52 K/mm3 (0.00-0.68); EOSINOPHILS PERCENT AUTO 5 % (0-6); Hematocrit 45.4 % (37.0-53.0); Hemoglobin 15.7 g/dL (13.5-17.5); IMMATURE GRAN ABSOLUTE AUTO 0.04 K/mm3 (0.00-0.10); IMMATURE GRAN PERCENT AUTO 0 % (0-1); LYMPHOCYTES ABSOLUTE AUTO 1.79 K/mm3 (0.84-5.20); LYMPHOCYTES PERCENT AUTO 18 % (21-46); MONOCYTES ABSOLUTE AUTO 0.79 K/mm3 (0.16-1.47); MONOCYTES PERCENT AUTO 8 % (4-13); Mean Corpuscular HGB 30.1 pg (26.0-34.0); Mean Corpuscular HGB Conc 34.6 g/dL (31.5-36.5); Mean Corpuscular Volume 87 fL (80-100); Mean Platelet Volume 10.2 fL (9.1-12.4); NEUTROPHILS ABSOLUTE AUTO 6.65 K/mm3 (1.96-9.15); NEUTROPHILS PERCENT AUTO 67 % (41-73); Platelet Count 402 K/mm3 (150-400); RDW Coefficient Variation 12.7 % (11.7-14.2); RDW Standard Deviation 40.4 fL (35.1-46.3); Red Blood Cell Count 5.21 M/mm3 (4.30-5.90); White Blood Cell Count 9.88 K/mm3 (4.00-11.30)
[2024-10-10 17:44] LABS: Albumin, Blood 4.5 g/dL (3.4-5.0); Albumin/Globulin Ratio 1.2 (0.8-1.8); Bilirubin, Total 0.7 mg/dL (0.1-1.0); Calcium, Blood 10.4 mg/dL (8.5-10.1); Globulin, Blood 3.9 g/dL (2.2-4.0); Potassium, Blood 3.6 mmol/L (3.5-5.5); Total Protein, Blood 8.4 g/dL (6.4-8.2)
[2024-10-10 23:53] VITALS: BP 115/80
== END 2024-10-11 00:10 | disposition home or self-care (01) ==
LOC: ER 16:22
PROVIDERS: Student in an Organized Health Care Education/Training Program
DX: R07.9 Chest pain, unspecified (principal); J44.89 Other specified chronic obstructive pulmonary disease; Z87.891 Personal history of nicotine dependence; Z79.899 Other long term (current) drug therapy; Z79.51 Long term (current) use of inhaled steroids
CPT/HCPCS: 71045; 80053; 83605; 84484; 85025; 85379; 93005; 93010; 99285-25

== ENCOUNTER 2024-11-28 07:17 | Day surgery (SDC) | payer BC ==
[2024-11-28] VITALS (8 sets, daily range): BP systolic 113–152; BP diastolic 58–122
[~2024-11-28] VITALS: Ht 177.8 cm; Wt 87.8 kg
[~2024-11-28 07:17] MED LIST changes: +ARGININE PO; +DEPO-TESTO200 MG/1 M IM; +FISH OIL 1,0001 EA10 PO; +MAGNESIUM PO; -Norco 5-325 Ta1 EACH PO; +Percocet 10-321 EACH PO; +QUERCETIN500 MG PO; +SODIUM CHLORIDE PO; -TESTOSTERONE CYP IM; +UBID10 PO; +XANAX PO
[2024-11-28] MEDS ORDERED: Lactated Ringer's 1,000 ML IV SCH (07:40)
[2024-11-28] MEDS ORDERED: FLUT1DIS5 INH (07:42)
[2024-11-28] MEDS ORDERED: Ampicillin Sod/Sulbactam Sod 3 GM in NS 100 ML IV SCH (07:50)
[2024-11-28] MEDS ORDERED: propofoL 20 ML IV ONE (08:29)
[2024-11-28] MEDS ORDERED: FentaNYL Citrate 50 MCG/ML 2 ML Injection ONE ×2 (08:29→10:10)
[2024-11-28] MEDS ORDERED: Lidocaine HCl 2% 20 ML MDV ONE (08:31)
[2024-11-28] MEDS ORDERED: Ondansetron HCl 2 MG / ML 2ML Vial ONE (08:31)
[2024-11-28] MEDS ORDERED: Dexamethasone Sod Phos 10 MG/ML 1ML VIAL ONE (08:31)
[2024-11-28] MEDS ORDERED: SuccINYLCHOLINE Chloride 100 MG/5 ML 5MLSYR ONE (08:31)
[2024-11-28] MEDS ORDERED: Lidocaine HCl 2% Jelly 120MG/6ML SYR (20MG PER ML) ONE (08:32)
[2024-11-28] MEDS ORDERED: Ketorolac Tromethamine 30mg Vial ONE (08:32)
[2024-11-28] MEDS ORDERED: Lidocaine 1%-Epineph 1:200000 30 ML SDV ONE (08:36)
[2024-11-28] MEDS ORDERED: Bupivacaine HCl 2.5 MG/ML 10ML P/F Injection ONE ×2 (08:36→09:08)
[2024-11-28] MEDS ORDERED: Rocuronium Bromide 10 MG/ML 5ML Injection IV ONE (08:47)
[2024-11-28] MEDS ORDERED: Glycopyrrolate 0.2 MG/ML 5ML VIAL ONE (09:06)
[2024-11-28] MEDS ORDERED: Phenylephrine HCl 10mg/ml 1 ml Vial ONE (09:17)
--- NOTE | 2024-11-28 09:32 | NUR ---
11/28/24 0932 Gladys Cox 30ML OF 1% LIDOCAINE WITH EPI 1:200,000 MIXED WITH 30ML OF 0.25% BUPIVACAINE TO CREATE A 1:1 MIXTURE.
[2024-11-28] MEDS ORDERED: OxyCODONE 5 mg/Acetamin 325 mg TABLET PO PRN (10:15)
--- NOTE | 2024-11-28 11:13 | NUR ---
DISCHARGE PT A&OX4/VSS/RA/C&DBS/FOLLOWS COMMANDS/EYES OPEN, PAIN TREATED WITH PERCOCET 5MG 1 TAB, DENIES NAUSEA/BRYON PO H20, DC INS PROVIDED TO PT AND , COPY SENT, LEFT WITH PERSONAL ITEMS VIA WC TO GO HOME WITH /PRE FABRICATOR, IV DC'D.
== END 2024-11-28 23:00 | disposition home or self-care (01) ==
LOC: ORSCMMR 07:17 → ORD 08:30 → ORSCMMR 23:00
PROVIDERS: Surgery
PROC: 0DQQ0ZZ Repair Anus, Open Approach (ICD-10-PCS; principal; 2024-11-28 08:30)
DX: K60.30 Anal fistula, unspecified (principal); F41.9 Anxiety disorder, unspecified; F32.A Depression, unspecified; J45.909 Unspecified asthma, uncomplicated; I10 Essential (primary) hypertension; K21.9 Gastro-esophageal reflux disease without esophagitis; J44.9 Chronic obstructive pulmonary disease, unspecified; Z79.899 Other long term (current) drug therapy
CPT/HCPCS: A9270; J0295; J0330; J1100; J1885; J2371; J2405; J2704; J3010; J7120